=== PATIENT | female | born 2000 ===

== ENCOUNTER → 2024-08-23 11:17 | Outpatient (CLI) | payer OTHER | END | disposition home or self-care (01) | LOC: PRENATAL 11:17 | PROVIDERS: ATTEND Obstetrics & Gynecology Maternal & Fetal Medicine | DX: O36.8199 Decreased fetal movements, unspecified trimester, other fetus (principal); O44.00 Complete placenta previa NOS or without hemorrhage, unspecified trimester; O26.879 Cervical shortening, unspecified trimester; Z3A.33 33 weeks gestation of pregnancy ==